=== PATIENT | female | born 1955 | race Caucasian/White ===

== ENCOUNTER 2018-12-13 12:53 | Day surgery (SDC) | payer OTHER ==
[2018-12-13 14:04] LABS: ADD MAN DIFF? NO
[2018-12-13 14:06] LABS: BASOPHILS % 0.6 % (0.0-2.0); EOSINOPHILS # 0.1 10^3/ul (0.0-0.5); EOSINOPHILS % 1.4 % (0.0-7.0); HEMATOCRIT 43.2 % (37.0-47.0); HEMOGLOBIN 14.2 g/dl (12.0-16.0); LYMPHOCYTES % 31.2 % (15.0-51.0); MEAN CORPUSCULAR HEMOGLOBIN 31.8 pg (29.0-33.0); MEAN CORPUSCULAR HGB CONC 32.9 g/dl (32.0-37.0); MEAN CORPUSCULAR VOLUME 96.6 fl (82.0-101.0); MEAN PLATELET VOLUME 9.5 fl (7.4-10.4); MONOCYTE # 0.4 10^3/ul (0.3-0.9); MONOCYTES % 5.8 % (0.0-11.0); NEUTROPHILS % 60.7 % (39.0-77.0); PLATELET COUNT 267 10^3/UL (140-415); RED BLOOD COUNT 4.47 10^6/ul (4.20-5.40); RED CELL DISTRIBUTION WIDTH 12.7 % (11.5-14.5)
[2018-12-13 14:06] LABS: WHITE BLOOD COUNT 6.5 10^3/ul (4.8-10.8)
[2018-12-13 14:26] LABS: INR 0.94; PROTIME 12.7 Sec (11.9-14.9)
[2018-12-13 14:27] LABS: PARTIAL THROMBOPLASTIN TIME 29.8 Sec (23.0-35.0)
[2018-12-13 14:52] LABS: ALANINE AMINOTRANSFERASE 32 IU/L (13-69); ALBUMIN/GLOBULIN RATIO 1.25; ALKALINE PHOSPHATASE 97 IU/L (42-121); ANION GAP 7 (5-13); ASPARTATE AMINO TRANSFERASE 24 IU/L (15-46); BILIRUBIN,INDIRECT 0.6 mg/dl (0-1.1); BILIRUBIN,TOTAL 0.6 mg/dl (0.2-1.3); BLOOD UREA NITROGEN 18 mg/dl (7-20); CALCIUM 9.5 mg/dl (8.4-10.2); CARBON DIOXIDE 26 mmol/L (21-31); CHLORIDE 107 mmol/L (97-110); CREATININE 0.65 mg/dl (0.44-1.00); Estimated GFR > 60 mL/min (>60); GLUCOSE 89 mg/dl (70-220); SODIUM 140 mmol/L (135-144); TOTAL PROTEIN 7.2 g/dl (6.1-8.1)
[2018-12-13] MEDS ORDERED: FENTAnyl 50 MCG/ML VIAL (17:47)
[2018-12-13] MEDS ORDERED: PROPOFOL 20 ML (17:51)
[2018-12-13] MEDS ORDERED: LIDOCAINE 2% (SDV) 5 ML INJ (17:51)
[2018-12-13] MEDS ORDERED: CEFAZOLIN 1 GM INJ (17:52)
[2018-12-13] MEDS ORDERED: DIPHENHYDRAMINE 50 MG INJ IV (18:00)
[2018-12-13] MEDS ORDERED: ONDANSETRON 4 MG INJ IV (18:00)
[2018-12-13] MEDS ORDERED: MEPERIDINE 25 MG INJ IV (18:00)
[2018-12-13] MEDS ORDERED: MIDAZOLAM 1 MG/ML 2 ML INJ (18:00)
[2018-12-13] MEDS ORDERED: FENTAnyl 50 MCG/ML VIAL IV (18:00)
[2018-12-13] MEDS ORDERED: PROCHLORPERAZINE 10 MG INJ IV (18:00)
[2018-12-13] MEDS ORDERED: HYDROmorphONE 1 MG/5 ML IV SYRINGE IV ×3 (18:00)
[2018-12-13] MEDS: BUPIVACAINE 0.5% (SDV) 30 ML INJ (18:03)
== END 2018-12-13 19:05 | disposition home or self-care (01) ==
LOC: SDS 12:53
DX: M67.441 Ganglion, right hand (principal)
CPT/HCPCS: 26160; 71045; 80053; 85025; 85610; 85730; 88307; 93005